=== PATIENT | female | born 1970 | race American Indian/Alaskan Native ===

== ENCOUNTER 2021-10-18 11:15 | Outpatient (CLI) | payer MEDICAID ==
[2021-10-18 12:08] LABS: Blood Urea Nitrogen 12 mg/dL (7-17)
--- NOTE | 2021-10-18 15:38 | Cat Scan Report ---
CT CHEST WITH CONTRAST INDICATION / CLINICAL INFORMATION: HILAR MASS. OMNI 300 100ML . TECHNIQUE: Axial CT images were obtained through the chest after IV contrast. All CT scans at this [facility] are performed using CT dose reduction for ALARA by means of automated exposure control. COMPARISON: None available. FINDINGS: HEART: Upper normal size with no acute abnormality. CORONARY ARTERY CALCIFICATION: None. THORACIC AORTA: No significant abnormality. MEDIASTINUM / NAVNEET: No significant adenopathy. No hilar mass. Mildly prominent pulmonary arteries. PLEURA: No pleural effusion. No pneumothorax. LUNGS: Mosaic attenuation of the lungs which can be seen in the setting of lower airways disease. No acute airspace disease. ADDITIONAL FINDINGS: None. UPPER ABDOMEN: No significant abnormality. SKELETAL SYSTEM: No significant abnormality. IMPRESSION: 1. Upper normal size heart with mildly prominent bilateral pulmonary arteries. No hilar mass or signi ficant adenopathy. 2. Mosaic attenuation of the lungs which can be seen in the setting of lower airways disease. Signer Name: Roldan Joe MD Signed: 10/18/2021 3:34 PM Workstation Name: [id number]
== END 2021-10-18 11:16 | disposition home or self-care (01) ==
LOC: CT 11:15
PROVIDERS: ATTEND Internal Medicine Cardiovascular Disease
DX: R91.8 Other nonspecific abnormal finding of lung field (principal)
CPT/HCPCS: 36415; 71260; 82565; 84520; Q9967